=== PATIENT | female | born 1990 | race Caucasian/White ===

== ENCOUNTER 2016-10-28 18:53 | Emergency (ER) | payer OTHER, SELFPAY ==
[2016-10-28] MEDS ORDERED: BACTRIM 160MG/800MG DS TAB As Ordered ONE (20:01)
--- NOTE | 2016-10-28 20:06 | EDDOCDS ---
Physician Documentation [facility] Name: Mara Edwards Age: 26 yrs Sex: Female : 1990 Arrival Date: 10/28/2016 Time: 18:53 Bed TR8 Private MD: NO PRIMARY PHYSICIAN, . Disposition: 10/28/16 19:54 Discharged to Home/Self Care. Impression: Impetigo. - Condition is Stable. - Discharge Instructions: Cellulitis. - Prescriptions for hydrocortisone butyrate 0.1 % Topical ointment - apply 1 application by TOPICAL route 2-3 times daily apply to neck area; 15 gram. Bactrim DS 800- 160 mg Oral Tablet - take 2 tablet by ORAL route every 12 hours for 7 days; 28 tablet. - Medication Reconciliation, Local Pharmacy Hours form. - Follow up: Emergency Department; When: As needed. Follow [facility]: [facility]; When: Call to arrange an appointment; Reason: Recheck today's complaints, Continuance of care, To establish care. - Problem is an ongoing problem. - Symptoms are unchanged. Historical: - Allergies: no known allergies; - Home Meds: 1. Benadryl 25 mg Oral cap 2 caps once daily (Last dose: 10/28/2016 09:00) - PMHx: none; - PSHx: ; - Social history: Smoking status: Patient uses tobacco products, light tobacco smoker. No barriers to communication noted, The patient speaks fluent [place] Leonean, Speaks appropriately for age. - Family history: Not pertinent. - : The pt / caregiver states he / she is not on anticoagulants. Home medication list is obtained from the patient. - Exposure Risk Screening:: None identified. 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 2 in. (157.48 cm) (R); Pain 0/10; 18:55 Body Mass Index 25.61 (63.50 kg, 157.48 cm) elp MDM: 19:53 Trimethoprim-Sulfamethoxazole (MRSA dose) 160 mg-800 mg (DS) 2 tabs PO once ordered. cc10 20:00 Financial registration complete. gjb Administered Medications: 20:03 Drug: Trimethoprim-Sulfamethoxazole (MRSA dose) 2 tabs [sulfamethoxazole 800 ms2 mg-trimethoprim 160 mg tablet (2 tabs)] Route: PO; Signatures: Moises HeatonRN RN ms2 Savi Reina RN RN jo3 Al Fox PA-C PANannette cc10 Kylee Ricci The chart was reviewed and I authenticate all verbal orders and agree with the evaluation and treatment provided.Corrections: (The following items were deleted from the chart) 19:28 19:05 Home Meds: none; jo3 ms2 MTDD
--- NOTE | 2016-10-28 20:06 | EDDOCDS ---
Nurse's Notes [facility] Name: Mara Edwards Age: 26 yrs Sex: Female : 1990 Arrival Date: 10/28/2016 Time: 18:53 Bed TR8 Private MD: NO PRIMARY PHYSICIAN, . Diagnosis: Impetigo Presentation: 10/28 19:03 Presenting complaint: Patient states: Itchy raised rash to sonia neck. Started last week. jo3 Onset: The symptoms/episode began/occurred acutely, 1 week(s) ago. This patient has not experienced a previous allergic reaction. Anaphylaxis evaluation, the patient reports or I have noted the following symptoms which indicate a significant risk of anaphylaxis: no signs or symptoms of anaphylaxis were noted. Adult Sepsis Screening: The patient does not have new or worsening altered mentation. Patient's respiratory rate is less than 22. Systolic blood pressure is greater than 100. Patient has a qSOFA score of 0- Negative Sepsis Screen. Suicide/Homicide risk assessment- the patient denies having any suicidal and/or homicidal ideations and does not present with any other emotional, behavioral or mental health complaints. Status: Patient is not a servicenow administrator or dependent. Transition of care: patient was not received from another setting of care. 19:03 Acuity: HAYLIE Level 4 jo3 19:03 Method Of Arrival: Walkin/Carried/Asstd jo3 Triage Assessment: 19:05 General: Appears in no apparent distress, comfortable, Behavior is appropriate for age, jo3 cooperative. HIV screening NA for this visit Offered previously. Neurological: Level of Consciousness is awake, alert, Oriented to person, place, time. 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 Benadryl 25 mg Oral cap 2 caps once daily (Last dose: 10/28/2016 09:00) - PMHx: none; - PSHx: ; - Social history: Smoking status: Patient uses tobacco products, light tobacco smoker. No barriers to communication noted, The patient speaks fluent [place], Speaks appropriately for age. - Family history: Not pertinent. - : The pt / caregiver states he / she is not on anticoagulants. Home medication list is obtained from the patient. - Exposure Risk Screening:: None identified. Screenin:26 Screening information is obtained from the patient. Fall risk: No risks identified. ms2 Assistance ADL's: requires no assistance with activities of daily living. Abuse/DV Screen: The patient / caregiver reports he/she is: not in a situation that causes fear, pain or injury. Nutritional screening: No deficits noted. Advance Directives: Currently, there is a health care proxy, friend --Rian French. There is no active DNR order. There is no living will. There is no Power of Aitchbone Breaker. Advance directive information has not previously been placed in an [facility] medical record. Further advance directive information is declined. home support is adequate. Assessment: 19:25 General: Appears in no apparent distress, Behavior is cooperative. Neurological: Level ms2 of Consciousness is awake, alert, obeys commands. Respiratory: No deficits noted. Airway is patent Respiratory effort is even, unlabored, Respiratory pattern is regular, symmetrical, NA. Derm: Skin is pink, warm & dry. Rash noted that is both sides of neck --appears dry -no vesicles---no other areas per pt. Musculoskeletal: Range of motion intact in all extremities. Vital Signs: 18:55 BP 142 / 68; Pulse 101; Resp 20; Temp 98.6(O); Pulse Ox 99% on R/A; Weight 63.5 kg (R); elp Height 5 ft. 2 in. (157.48 cm) (R); Pain 0/10; 18:55 Body Mass Index 25.61 (63.50 kg, 157.48 cm) el Vitals: 18:55 Log In Time: October 28, 2016 at 18:52. el ED Course: 18:54 Patient visited by Kathryn Baron PCA. elp 18:54 NO PRIMARY PHYSICIAN, . is Private Physician. elp 18:54 Patient moved to Waiting elp 18:56 Patient moved to Pre RCE elp 19:04 Triage Initiated jo3 19:05 Patient visited by Savi Reina,DEBBIE. jo3 19:23 Patient moved to Triage 1 ct3 19:24 Patient visited by Moises Heaton,DEBBIE. ms2 19:27 The patient / caregiver is instructed regarding the plan of care and ED course. ms2 19:27 No IV's were initiated during this patient's visit. No procedures done that require ms2 assistance. 19:32 [facility] cc10 19:32 Yo Chowdhury DO is Attending Physician. cc10 19:39 Patient visited by Al Fox PA-C. cc10 19:39 Patient visited by Al Fox PA-C. cc10 19:53 [facility] is Referral Physician. cc10 20:03 Patient moved to TR8 ms2 Administered Medications: 20:03 Drug: Trimethoprim-Sulfamethoxazole (MRSA dose) 2 tabs [sulfamethoxazole 800 ms2 mg-trimethoprim 160 mg tablet (2 tabs)] Route: PO; Order Results: There are currently no results for this order. Outcome: 19:54 Discharge ordered by Provider. cc10 20:05 Patient left the ED. ms2 Signatures: Moises HeatonRN RN ms2 Savi Reina RN RN jo3 Ni, Dayana, TIP PRINTER TIP PRINTER ct3 Patchen, Kathryn, TIP PRINTER TIP PRINTER elp Al Fox PA-C PA-C cc10 Corrections: (The following items were deleted from the chart) 19:28 19:05 Home Meds: none; jo3 ms2 MTDD
--- NOTE | 2016-10-30 21:07 | EDDOCDS ---
Physician Documentation [facility] Name: Mara Edwards Age: 26 yrs Sex: Female : 1990 Arrival Date: 10/28/2016 Time: 18:53 Bed TR8 Private MD: NO PRIMARY PHYSICIAN, . Disposition: 10/28/16 19:54 Discharged to Home/Self Care. Impression: Impetigo. - Condition is Stable. - Discharge Instructions: Cellulitis. - Prescriptions for hydrocortisone butyrate 0.1 % Topical ointment - apply 1 application by TOPICAL route 2-3 times daily apply to neck area; 15 gram. Bactrim DS 800- 160 mg Oral Tablet - take 2 tablet by ORAL route every 12 hours for 7 days; 28 tablet. - Medication Reconciliation, Local Pharmacy Hours form. - Follow up: Emergency Department; When: As needed. Follow up: [facility]; When: Call to arrange an appointment; Reason: Recheck today's complaints, Continuance of care, To establish care. - Problem is an ongoing problem. - Symptoms are unchanged. Historical: - Allergies: no known allergies; - Home Meds: 1. Benadryl 25 mg Oral cap 2 caps once daily (Last dose: 10/28/2016 09:00) - PMHx: none; - PSHx: ; - Social history: Smoking status: Patient uses tobacco products, light tobacco smoker. No barriers to communication noted, The patient speaks fluent Bel[place]ian, Speaks appropriately for age. - Family history: Not pertinent. - : The pt / caregiver states he / she is not on anticoagulants. Home medication list is obtained from the patient. - Exposure Risk Screening:: None identified. 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 2 in. (157.48 cm) (R); Pain 0/10; 18:55 Body Mass Index 25.61 (63.50 kg, 157.48 cm) elp MDM: 19:53 Trimethoprim-Sulfamethoxazole (MRSA dose) 160 mg-800 mg (DS) 2 tabs PO once ordered. cc10 20:00 Financial registration complete. b 20:23 [facility] Payment Agreement was scanned into [employer] and attached to record. [facility] 10/29 10:36 T-Sheet-- Draft Copy was scanned into [employer] and attached to record. gb Administered Medications: 10/28 20:03 Drug: Trimethoprim-Sulfamethoxazole (MRSA dose) 2 tabs [sulfamethoxazole 800 ms2 mg-trimethoprim 160 mg tablet (2 tabs)] Route: PO; Signatures: Moises Heaton,RN RN ms2 Shantelle Fontaine, Reg Reg gb Savi ReinaRN RN jo3 Al Fox, PA-C PA-C cc10 Kylee Ricci The chart was reviewed and I authenticate all verbal orders and agree with the evaluation and treatment provided.Corrections: (The following items were deleted from the chart) 19:28 19:05 Home Meds: none; jo3 ms2 Attachments: 20:23 [facility] Payment Agreement [facility] 10/29 10:36 T-Sheet-- Draft Copy gb Chart Complete MTDD
--- NOTE | 2016-10-30 21:07 | EDDOCDS ---
Physician Documentation [facility] Name: Mara Edwards Age: 26 yrs Sex: Female : 1990 Arrival Date: 10/28/2016 Time: 18:53 Bed TR8 Private MD: NO PRIMARY PHYSICIAN, . Disposition: 10/28/16 19:54 Discharged to Home/Self Care. Impression: Impetigo. - Condition is Stable. - Discharge Instructions: Cellulitis. - Prescriptions for hydrocortisone butyrate 0.1 % Topical ointment - apply 1 application by TOPICAL route 2-3 times daily apply to neck area; 15 gram. Bactrim DS 800- 160 mg Oral Tablet - take 2 tablet by ORAL route every 12 hours for 7 days; 28 tablet. - Medication Reconciliation, Local Pharmacy Hours form. - Follow up: Emergency Department; When: As needed. Follow up: [facility]; When: Call to arrange an appointment; Reason: Recheck today's complaints, Continuance of care, To establish care. - Problem is an ongoing problem. - Symptoms are unchanged. Historical: - Allergies: no known allergies; - Home Meds: 1. Benadryl 25 mg Oral cap 2 caps once daily (Last dose: 10/28/2016 09:00) - PMHx: none; - PSHx: ; - Social history: Smoking status: Patient uses tobacco products, light tobacco smoker. No barriers to communication noted, The patient speaks fluent [place] Irish, Speaks appropriately for age. - Family history: Not pertinent. - : The pt / caregiver states he / she is not on anticoagulants. Home medication list is obtained from the patient. - Exposure Risk Screening:: None identified. 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 2 in. (157.48 cm) (R); Pain 0/10; 18:55 Body Mass Index 25.61 (63.50 kg, 157.48 cm) elp MDM: 19:53 Trimethoprim-Sulfamethoxazole (MRSA dose) 160 mg-800 mg (DS) 2 tabs PO once ordered. cc10 20:00 Financial registration complete. b 20:23 [facility] Payment Agreement was scanned into [employer] and attached to record. [facility] 10/29 10:36 T-Sheet-- Draft Copy was scanned into [employer] and attached to record. gb Administered Medications: 10/28 20:03 Drug: Trimethoprim-Sulfamethoxazole (MRSA dose) 2 tabs [sulfamethoxazole 800 ms2 mg-trimethoprim 160 mg tablet (2 tabs)] Route: PO; Signatures: Moises Heaton,RN RN ms2 Shantelle Fontaine, Reg Reg gb Savi ReinaRN RN jo3 Al Fox, PA-C PA-C cc10 Kylee Ricci The chart was reviewed and I authenticate all verbal orders and agree with the evaluation and treatment provided.Corrections: (The following items were deleted from the chart) 19:28 19:05 Home Meds: none; jo3 ms2 Attachments: 20:23 [facility] Payment Agreement [facility] 10/29 10:36 T-Sheet-- Draft Copy gb Chart Complete MTDD
--- NOTE | 2016-10-30 21:07 | EDDOCDS ---
Nurse's Notes [facility] Name: Mara Edwards Age: 26 yrs Sex: Female : 1990 Arrival Date: 10/28/2016 Time: 18:53 Bed TR8 Private MD: NO PRIMARY PHYSICIAN, . Diagnosis: Impetigo Presentation: 10/28 19:03 Presenting complaint: Patient states: Itchy raised rash to sonia neck. Started last week. jo3 Onset: The symptoms/episode began/occurred acutely, 1 week(s) ago. This patient has not experienced a previous allergic reaction. Anaphylaxis evaluation, the patient reports or I have noted the following symptoms which indicate a significant risk of anaphylaxis: no signs or symptoms of anaphylaxis were noted. Adult Sepsis Screening: The patient does not have new or worsening altered mentation. Patient's respiratory rate is less than 22. Systolic blood pressure is greater than 100. Patient has a qSOFA score of 0- Negative Sepsis Screen. Suicide/Homicide risk assessment- the patient denies having any suicidal and/or homicidal ideations and does not present with any other emotional, behavioral or mental health complaints. Status: Patient is not a service support representative or dependent. Transition of care: patient was not received from another setting of care. 19:03 Acuity: HAYLIE Level 4 jo3 19:03 Method Of Arrival: Walkin/Carried/Asstd jo3 Triage Assessment: 19:05 General: Appears in no apparent distress, comfortable, Behavior is appropriate for age, jo3 cooperative. HIV screening NA for this visit Offered previously. Neurological: Level of Consciousness is awake, alert, Oriented to person, place, time. 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 Benadryl 25 mg Oral cap 2 caps once daily (Last dose: 10/28/2016 09:00) - PMHx: none; - PSHx: ; - Social history: Smoking status: Patient uses tobacco products, light tobacco smoker. No barriers to communication noted, The patient speaks fluent [place] Of [place], Speaks appropriately for age. - Family history: Not pertinent. - : The pt / caregiver states he / she is not on anticoagulants. Home medication list is obtained from the patient. - Exposure Risk Screening:: None identified. Screenin:26 Screening information is obtained from the patient. Fall risk: No risks identified. ms2 Assistance ADL's: requires no assistance with activities of daily living. Abuse/DV Screen: The patient / caregiver reports he/she is: not in a situation that causes fear, pain or injury. Nutritional screening: No deficits noted. Advance Directives: Currently, there is a health care proxy, friend --Rian French. There is no active DNR order. There is no living will. There is no Power of Employment Coach. Advance directive information has not previously been placed in an [facility] medical record. Further advance directive information is declined. home support is adequate. Assessment: 19:25 General: Appears in no apparent distress, Behavior is cooperative. Neurological: Level ms2 of Consciousness is awake, alert, obeys commands. Respiratory: No deficits noted. Airway is patent Respiratory effort is even, unlabored, Respiratory pattern is regular, symmetrical, NA. Derm: Skin is pink, warm & dry. Rash noted that is both sides of neck --appears dry -no vesicles---no other areas per pt. Musculoskeletal: Range of motion intact in all extremities. 20:05 General: Appears in no apparent distress, Behavior is cooperative. Neurological: Level ms2 of Consciousness is awake, alert, obeys commands. Respiratory: No deficits noted. Airway is patent Respiratory effort is even, unlabored, Respiratory pattern is regular, symmetrical. Derm: Skin is pink, warm & dry. Musculoskeletal: Range of motion intact in all extremities. Vital Signs: 18:55 BP 142 / 68; Pulse 101; Resp 20; Temp 98.6(O); Pulse Ox 99% on R/A; Weight 63.5 kg (R); elp Height 5 ft. 2 in. (157.48 cm) (R); Pain 0/10; 18:55 Body Mass Index 25.61 (63.50 kg, 157.48 cm) [facility] Vitals: 18:55 Log In Time: October 28, 2016 at 18:52. [facility] ED Course: 18:54 Patient visited by Kathryn Baron PCA. elp 18:54 NO PRIMARY PHYSICIAN, . is Private Physician. elp 18:54 Patient moved to Waiting elp 18:56 Patient moved to Pre RCE elp 19:04 Triage Initiated jo3 19:05 Patient visited by Savi Reina RN. jo3 19:23 Patient moved to Triage 1 ct3 19:24 Patient visited by Moises Heaton RN. ms2 19:27 The patient / caregiver is instructed regarding the plan of care and ED course. ms2 19:27 No IV's were initiated during this patient's visit. No procedures done that require ms2 assistance. 19:32 Al Fox PA-C is [facility]. cc10 19:32 Yo Chowdhury DO is Attending Physician. cc10 19:39 Patient visited by Al Fox PA-C. cc10 19:39 Patient visited by Al Fox PA-C. cc10 19:53 [facility] is Referral Physician. cc10 20:03 Patient moved to TR8 ms2 20:05 The patient / caregiver is instructed regarding the plan of care and ED course. ms2 20:23 [facility] Payment Agreement was scanned into [employer] and attached to record. trista 10/29 10:36 T-Sheet-- Draft Copy was scanned into [employer] and attached to record. gb Administered Medications: 10/28 20:03 Drug: Trimethoprim-Sulfamethoxazole (MRSA dose) 2 tabs [sulfamethoxazole 800 ms2 mg-trimethoprim 160 mg tablet (2 tabs)] Route: PO; Order Results: There are currently no results for this order. Outcome: 19:54 Discharge ordered by Provider. cc10 20:05 Patient left the ED. ms2 20:05 Discharge Assessment: patient administered narcotics - no. The following High Risk ms2 Discharge criteria are identified: None. Discharged to home ambulatory. Condition: stable. Discharge instructions given to patient, Instructed on discharge instructions, follow up and referral plans. medication usage, Demonstrated understanding of instructions, medications, Pt was receptive of discharge instructions/ teaching. Prescriptions given X one faxed. No special radiology studies were completed. Property sent home with patient. Signatures: Moises Heaton RN RN ms2 Shantelle Fontaine, Franc Reg Savi Otoole RN RN jo3 Raine, Dayana, TILE LAYER DRAINAGE TILE LAYER DRAINAGE ct3 Patchen, Kathryn, TILE LAYER DRAINAGE TILE LAYER DRAINAGE elp Al Fox PA-C PA-C cc10 Kylee Ricci [facility] Corrections: (The following items were deleted from the chart) 19:28 19:05 Home Meds: none; jo3 ms2 Chart Complete MTDD
== END 2016-10-28 20:05 | disposition home or self-care (01) ==
LOC: M ED 18:53
DX: L03.221 Cellulitis of neck (principal); F17.210 Nicotine dependence, cigarettes, uncomplicated; Z79.899 Other long term (current) drug therapy

== ENCOUNTER 2024-03-05 17:04 | Emergency (ER) | payer SELFPAY ==
[~2024-03-05] VITALS: Ht 157.5 cm; Wt 73.6 kg
[2024-03-05 19:14] LABS: Trichomonas vaginalis (AMP) POSITIVE (NEGATIVE)
[2024-03-05 19:44] LABS: GC DNA AMPLIFICATION NEGATIVE (NEGATIVE)
[2024-03-05] MEDS: metroNIDAZOLE (FLAGYL) 500MG TABLET PO ONE (19:53)
[2024-03-05] MEDS: ONDANSETRON 4MG ORAL DISINTEGRATING TAB PO ONE (19:53)
[2024-03-05] MEDS: LIDOCAINE 1% SDV 5ML VIAL DILUENT ONE (19:54)
[2024-03-05] MEDS: cefTRIAXone 500MG VIAL IM ONE (19:54)
[2024-03-05 20:25] VITALS: BP 123/72; TEMP 97.8; O2SAT 98
== END 2024-03-05 20:29 | disposition home or self-care (01) ==
LOC: M ED 17:04
DX: A59.9 Trichomoniasis, unspecified (principal); Z87.448 Personal history of other diseases of urinary system; F17.200 Nicotine dependence, unspecified, uncomplicated
CPT/HCPCS: 87661; 87810; 87850; 96372; 99283; J0696